=== PATIENT | female | born 1995 | race Caucasian/White ===

== ENCOUNTER 2017-03-20 13:50 | Emergency (ER) | payer BC ==
[~2017-03-20] VITALS: Ht 165.1 cm; Wt 64.0 kg
[2017-03-20 13:52] VITALS: TEMP 37; Ht 165.1 cm; Wt 64.0 kg
[2017-03-20 14:48] LABS: BASO % 0.2 %; BASO ABS # 0.02 K/uL (0-0.2); COMPLETE YES; EOS % 0.4 %; HEMATOCRIT 41.2 % (37-47); IG% 0.1 %; LYMPH % 31.4 %; LYMPH ABS # 2.55 K/uL (1.2-3.4); MEAN CELL VOLUME 88.6 fL (80-100); MEAN CORPUSCULAR HEMOGLOBIN 30.5 pg (25-34); MEAN CORPUSCULAR HGB CONC 34.5 g/dl (32-36); MEAN PLATELET VOLUME 9.1 fL (7.4-10.4); MONO % 4.9 %; PLATELET COUNT 240 K/uL (130-400); RED BLOOD COUNT 4.65 M/uL (4.2-5.4); WHITE BLOOD COUNT 8.11 K/uL (4.8-10.8)
--- NOTE | 2017-03-20 14:49 | EMERGENCY ROOM VISIT NOTE ---
History First contact with patient: 14:26 Chief Complaint: CHEST PAIN Stated Complaint: CP, RUNNING INTO NECK/ARM, NUMB FEELING IN WRIST Nursing Triage Summary: chest pain and left neck and arm pain for the past 3 hrs History of Present Illness The patient is a 21 year old female who presents to the Emergency Room with complaints of chest pain for 3-4 hours ago. She reports it started suddenly on the L side of her chest, under her clavicle. It radiates down her L arm on the 4th and 5th fingers. The pain is associated with numbness. She describes the pain as throbbing. She reports it is an 8-9/10. She denies shortness of breath. Nothing makes the pain better or worse. It has been constant over the last 3-4 hours. She went to [facility] and was advised to come here for evaluation for blood clots. She denies any periods of immobility. She denies calf swelling. She is not short of breath. She has a history of anxiety. She used to have panic attacks to the point where she would faint, but is not on regular medications for anxiety. She does exercise and was doing pushups yesterday. She is on control but is on the Nexplanon, so is not on exogenous estrogen. Review of Systems See HPI for pertinent positives & negatives. A total of 10 systems reviewed and were otherwise negative. Past Medical/Surgical History Medical Problems: (1) Anxiety (2) No chronic problems PMHx: Anxiety PSHx: None Family History Both parents are alive and well. Mom has HTN. Neither parents have cardiac disease. Social History Smoking Status: Never Smoker Alcohol Use: none Drug Use: none Marital Status: single Housing Status: lives with roommate Occupation Status: [employer] student Current/Historical Medications No Active Prescriptions or Reported Meds Allergies NKDA Physical Exam Vital Signs Date Time Temp Pulse Resp B/P (MAP) Pulse Ox O2 Delivery O2 Flow Rate FiO2 03/20/17 15:59 74 16 123/75 97 03/20/17 15:21 85 16 107/75 Room Air 03/20/17 15:20 97 Room Air 03/20/17 13:52 37.0 94 16 126/86 97 Room Air Physical Exam GENERAL: Awake, alert, well-appearing, in no acute distress HENT: Normocephalic, atraumatic. Oropharynx unremarkable. EYES: Normal conjunctiva. Sclera non-icteric. NECK: Supple. No nuchal rigidity. FROM. No JVD. RESPIRATORY: Clear to auscultation. CARDIAC: Regular rate, normal rhythm. Extremities warm and well perfused. Pulses equal. ABDOMEN: Soft, non-distended. No tenderness to palpation. No rebound or guarding. No masses. RECTAL: Deferred. MUSCULOSKELETAL: Chest examination reveals mild tenderness. The back is symmetrical on inspection without obvious abnormality. There is no CVA tenderness to palpation. No joint edema. LOWER EXTREMITIES: Calves are equal size bilaterally and non-tender. No edema. No discoloration. NEURO: Normal sensorium. No sensory or motor deficits noted. SKIN: No rash or jaundice noted. Medical Decision & Procedures Laboratory Results 03/20/17 14:33 Red Blood Count 4.65, Mean Corpuscular Volume 88.6, Mean Corpuscular Hemoglobin 30.5, Mean Corpuscular Hemoglobin Concent 34.5, Mean Platelet Volume 9.1, Neutrophils (%) (Auto) 63.0, Lymphocytes (%) (Auto) 31.4, Monocytes (%) (Auto) 4.9, Eosinophils (%) (Auto) 0.4, Basophils (%) (Auto) 0.2, Neutrophils # (Auto) 5.10, Lymphocytes # (Auto) 2.55, Monocytes # (Auto) 0.40, Eosinophils # (Auto) 0.03, Basophils # (Auto) 0.02 03/20/17 14:33 Test 03/20/17 14:33 03/20/17 14:39 03/20/17 14:56 White Blood Count 8.11 K/uL (4.8-10.8) Red Blood Count 4.65 M/uL (4.2-5.4) Hemoglobin 14.2 g/dL (12.0-16.0) Hematocrit 41.2 % (37-47) Mean Corpuscular Volume 88.6 fL (80-100) Mean Corpuscular Hemoglobin 30.5 pg (25-34) Mean Corpuscular Hemoglobin Concent 34.5 g/dl (32-36) Platelet Count 240 K/uL (130-400) Mean Platelet Volume 9.1 fL (7.4-10.4) Neutrophils (%) (Auto) 63.0 % Lymphocytes (%) (Auto) 31.4 % Monocytes (%) (Auto) 4.9 % Eosinophils (%) (Auto) 0.4 % Basophils (%) (Auto) 0.2 % Neutrophils # (Auto) 5.10 K/uL (1.4-6.5) Lymphocytes # (Auto) 2.55 K/uL (1.2-3.4) Monocytes # (Auto) 0.40 K/uL (0.11-0.59) Eosinophils # (Auto) 0.03 K/uL (0-0.5) Basophils # (Auto) 0.02 K/uL (0-0.2) RDW Standard Deviation 40.1 fL (36.4-46.3) RDW Coefficient of Variation 12.5 % (11.5-14.5) Immature Granulocyte % (Auto) 0.1 % Immature Granulocyte # (Auto) 0.01 K/uL (0.00-0.02) Urine Color DK YELLOW Urine Appearance CLOUDY (CLEAR) Urine pH 7.0 (4.5-7.5) Urine Specific [place] 1.032 (1.000-1.030) Urine Protein 1+ (NEG) Urine Glucose (UA) NEG (NEG) Urine Ketones TRACE (NEG) Urine Occult Blood NEG (NEG) Urine Nitrite NEG (NEG) Urine Bilirubin NEG (NEG) Urine Urobilinogen NEG (NEG) Urine Leukocyte Esterase SMALL (NEG) Urine WBC (Auto) 5-10 /hpf (0-5) Urine RBC (Auto) 5-10 /hpf (0-4) Urine Hyaline Casts (Auto) 10-30 /lpf (0-5) Urine Epithelial Cells (Auto) >30 /lpf (0-5) Urine Bacteria (Auto) 2+ (NEG) Urine Renal Epithelial Cells /lpf (0-5) Anion Gap 7.0 mmol/L (3-11) Est Creatinine Clear Calc Drug Dose 85.7 ml/min Estimated GFR () 100.6 Estimated GFR (Non- 86.8 BUN/Creatinine Ratio 12.5 (10-20) Calcium Level 9.3 mg/dl (8.5-10.1) Total Bilirubin 1.6 mg/dl (0.2-1) Aspartate Amino Transf (AST/SGOT) 17 U/L (15-37) Alanine Aminotransferase (ALT/SGPT) 12 U/L (12-78) Alkaline Phosphatase 53 U/L (45-117) Total Protein 8.3 gm/dl (6.4-8.2) Albumin 4.5 gm/dl (3.4-5.0) Globulin 3.8 gm/dl (2.5-4.0) Albumin/Globulin Ratio 1.2 (0.9-2) Bedside D-Dimer 101 ng/mlFEU (0-450) Bedside Troponin I < 0.030 ng/ml (0-0.045) Medications Administered Medications (Trade) Dose Ordered Sig/Alok Route Start Time Stop Time Status Last Admin Dose Admin Lorazepam (Ativan Tab) 0.5 mg NOW STAT PO 03/20/17 15:41 03/20/17 15:42 DC 03/20/17 15:48 0.5 MG ECG Indication: chest pain Rate (beats per minute): 86 Rhythm: normal sinus Findings: no ectopy Comparison ECG Date: no prior available ED Course 2:30 PM: I saw the patient in room C7. A complete history and physical examination was performed. 3:30 PM: Ordered Ativan Tab 0.5 mg PO. 3:35: On reevaluation, the patient is resting. I discussed the results and findings with the patient. She verbalized agreement of the treatment plan. She was discharged home. Medical Decision This is a 21 yo F who presents with chest pain x 4 hours. DDx includes - MA, ACS , pericarditis, anxiety, musculoskeletal, cholecystitis, GERD. She had an IV placed and labs drawn. Her vitals and labwork were unremarkable. She had a normal D-dimer and troponin. CXR was negative for disease. She was very anxious during her time in the ED and felt better with PO dose of Ativan. She was felt to be stable for discharge home with outpatient follow up. She was discharged home in good condition. Impression Primary Impression: Chest wall pain Departure Information Dispostion Home / Self-Care Condition GOOD Prescriptions No Active Prescriptions or Reported Meds Referrals [facility] (PCP) Patient Instructions My [facility]
[2017-03-20 14:52] LABS: URINE APPEARANCE CLOUDY (CLEAR); URINE BILIRUBIN NEG (NEG); URINE COLOR DK YELLOW; URINE EPITHELIAL CELL AUTO >30 /lpf (0-5); URINE NITRITE NEG (NEG); URINE SPECIFIC GRAVITY 1.032 (1.000-1.030); UROBILINOGEN NEG (NEG); ZZUR CULT IF INDIC CLEAN CATCH YES
[2017-03-20 14:54] LABS: MANUAL MICROSCOPIC REQUIRED? NO; REVIEW REQ? YES
[2017-03-20 15:09] LABS: BUN/CREATININE RATIO 12.5 (10-20); CALCIUM 9.3 mg/dl (8.5-10.1); CREATININE 0.95 mg/dl (0.60-1.20); POTASSIUM 3.7 mmol/L (3.5-5.1)
[2017-03-20 15:12] LABS: ALB/GLOB RATIO 1.2 (0.9-2)
[2017-03-20 15:13] LABS: POINT OF CARE TROPONIN I < 0.030 ng/ml (0-0.045)
[2017-03-20 15:20] VITALS: O2SAT 97
[2017-03-20] MEDS ORDERED: LORAZEPAM 0.5 MG TAB PO STA (15:41)
--- NOTE | 2017-03-20 15:46 | DIAGNOSTIC IMAGING REPORT ---
CHEST ONE VIEW PORTABLE HISTORY: 21 years-old Female left sided cp acute left-sided atypical chest pain COMPARISON: None available TECHNIQUE: Portable upright AP view of the chest FINDINGS: Cardiomediastinal and hilar silhouettes are within normal limits. No pneumothorax, pleural effusion, focal airspace consolidation or overt pulmonary edema. The bones of the chest are grossly intact. IMPRESSION: No acute cardiopulmonary process. The above report was generated using voice recognition software. It may contain grammatical, syntax or spelling errors. Electronically signed by: Jesús Nolan M.D. 03/20/2017 3:45 PM Dictated Date/Time: 03/20/2017 3:44 PM
[2017-03-20 15:59] VITALS: BP 123/75; PULSE 74; O2SAT 97
--- NOTE | 2017-03-20 16:02 | EMERGENCY ROOM VISIT NOTE ---
History Report prepared by Joselin: Stevie Lawrence Under the Supervision of: Amparo VergaraO. First contact with patient: 14:26 Chief Complaint: CHEST PAIN Stated Complaint: CP, RUNNING INTO NECK/ARM, NUMB FEELING IN WRIST Nursing Triage Summary: chest pain and left neck and arm pain for the past 3 hrs History of Present Illness The patient is a 21 year old female who presents to the Emergency Room with complaints of persistent left-sided chest pain that started around 3 hours ago. She says that the pain has been radiating down her left arm and into her 4th and 5th fingers, and she has been feeling some numbness and tingling around her painful areas as well. The patient currently rates her pain as an 8 to 9 out of 10 in severity. She adds that she went to [facility] prior to arrival and was told to come here to rule-out blood clots. The patient denies any calf swelling. She notes that she has a history of anxiety, and would faint sometimes. She is on Nexplanon. Source of History: patient Onset: 3 hours ago Position: chest (left) Symptom Intensity: 8 to 9 out of 10 Timing: other (persistent) Associated Symptoms: + numbness (and tingling left chest and left arm) Note: Associated symptoms: Denies calf swelling. Review of Systems See HPI for pertinent positives & negatives. A total of 10 systems reviewed and were otherwise negative. Past Medical & Surgical Medical Problems: (1) Anxiety (2) No chronic problems Family History No pertinent family history Social History Smoking Status: Never Smoker Alcohol Use: none Drug Use: none Marital Status: single Housing Status: lives with roommate Occupation Status: [employer] student Current/Historical Medications No Active Prescriptions or Reported Meds Allergies Coded Allergies: No Known Allergies (Unverified , 03/20/17) Physical Exam Vital Signs Date Time Temp Pulse Resp B/P (MAP) Pulse Ox O2 Delivery O2 Flow Rate FiO2 03/20/17 15:59 74 16 123/75 97 03/20/17 15:21 85 16 107/75 Room Air 03/20/17 15:20 97 Room Air 03/20/17 13:52 37.0 94 16 126/86 97 Room Air Physical Exam CONSTITUTIONAL/VITAL SIGNS: Reviewed / noted above. GENERAL: Non-toxic in appearance. INTEGUMENTARY: Warm, dry, and [place]. HEAD: Normocephalic. EYES: without scleral icterus or trauma. ENT/OROPHARYNX: clear and moist. LYMPHADENOPATHY/NECK: Is supple without lymphadenopathy or meningismus. RESPIRATORY: Lungs clear and equal. CARDIOVASCULAR: Regular rate and rhythm. GI/ABDOMEN: Soft and nontender. No organomegaly or pulsatile mass. No rebound or guarding. Normal bowel sounds. EXTREMITIES: Warm and well perfused. BACK: No CVA tenderness. NEUROLOGICAL: Intact without focal deficits. PSYCHIATRIC: normal affect. MUSCULOSKELETAL: Normally developed with good muscle tone. Medical Decision & Procedures ER Provider Diagnostic Interpretation: X ray results and stated below per my interpretation and radiology interpretation. CHEST ONE VIEW PORTABLE HISTORY: 21 years-old Female left sided cp acute left-sided atypical chest pain COMPARISON: None available TECHNIQUE: Portable upright AP view of the chest FINDINGS: Cardiomediastinal and hilar silhouettes are within normal limits. No pneumothorax, pleural effusion, focal airspace consolidation or overt pulmonary edema. The bones of the chest are grossly intact. IMPRESSION: No acute cardiopulmonary process. The above report was generated using voice recognition software. It may contain grammatical, syntax or spelling errors. Electronically signed by: Jesús Nolan M.D. 03/20/2017 3:45 PM Dictated Date/Time: 03/20/2017 3:44 PM Laboratory Results 03/20/17 14:33 Red Blood Count 4.65, Mean Corpuscular Volume 88.6, Mean Corpuscular Hemoglobin 30.5, Mean Corpuscular Hemoglobin Concent 34.5, Mean Platelet Volume 9.1, Neutrophils (%) (Auto) 63.0, Lymphocytes (%) (Auto) 31.4, Monocytes (%) (Auto) 4.9, Eosinophils (%) (Auto) 0.4, Basophils (%) (Auto) 0.2, Neutrophils # (Auto) 5.10, Lymphocytes # (Auto) 2.55, Monocytes # (Auto) 0.40, Eosinophils # (Auto) 0.03, Basophils # (Auto) 0.02 03/20/17 14:33 Test 03/20/17 14:33 03/20/17 14:39 03/20/17 14:56 White Blood Count 8.11 K/uL (4.8-10.8) Red Blood Count 4.65 M/uL (4.2-5.4) Hemoglobin 14.2 g/dL (12.0-16.0) Hematocrit 41.2 % (37-47) Mean Corpuscular Volume 88.6 fL (80-100) Mean Corpuscular Hemoglobin 30.5 pg (25-34) Mean Corpuscular Hemoglobin Concent 34.5 g/dl (32-36) Platelet Count 240 K/uL (130-400) Mean Platelet Volume 9.1 fL (7.4-10.4) Neutrophils (%) (Auto) 63.0 % Lymphocytes (%) (Auto) 31.4 % Monocytes (%) (Auto) 4.9 % Eosinophils (%) (Auto) 0.4 % Basophils (%) (Auto) 0.2 % Neutrophils # (Auto) 5.10 K/uL (1.4-6.5) Lymphocytes # (Auto) 2.55 K/uL (1.2-3.4) Monocytes # (Auto) 0.40 K/uL (0.11-0.59) Eosinophils # (Auto) 0.03 K/uL (0-0.5) Basophils # (Auto) 0.02 K/uL (0-0.2) RDW Standard Deviation 40.1 fL (36.4-46.3) RDW Coefficient of Variation 12.5 % (11.5-14.5) Immature Granulocyte % (Auto) 0.1 % Immature Granulocyte # (Auto) 0.01 K/uL (0.00-0.02) Urine Color DK YELLOW Urine Appearance CLOUDY (CLEAR) Urine pH 7.0 (4.5-7.5) Urine Specific [place] 1.032 (1.000-1.030) Urine Protein 1+ (NEG) Urine Glucose (UA) NEG (NEG) Urine Ketones TRACE (NEG) Urine Occult Blood NEG (NEG) Urine Nitrite NEG (NEG) Urine Bilirubin NEG (NEG) Urine Urobilinogen NEG (NEG) Urine Leukocyte Esterase SMALL (NEG) Urine WBC (Auto) 5-10 /hpf (0-5) Urine RBC (Auto) 5-10 /hpf (0-4) Urine Hyaline Casts (Auto) 10-30 /lpf (0-5) Urine Epithelial Cells (Auto) >30 /lpf (0-5) Urine Bacteria (Auto) 2+ (NEG) Urine Renal Epithelial Cells /lpf (0-5) Anion Gap 7.0 mmol/L (3-11) Est Creatinine Clear Calc Drug Dose 85.7 ml/min Estimated GFR () 100.6 Estimated GFR (Non- 86.8 BUN/Creatinine Ratio 12.5 (10-20) Calcium Level 9.3 mg/dl (8.5-10.1) Total Bilirubin 1.6 mg/dl (0.2-1) Aspartate Amino Transf (AST/SGOT) 17 U/L (15-37) Alanine Aminotransferase (ALT/SGPT) 12 U/L (12-78) Alkaline Phosphatase 53 U/L (45-117) Total Protein 8.3 gm/dl (6.4-8.2) Albumin 4.5 gm/dl (3.4-5.0) Globulin 3.8 gm/dl (2.5-4.0) Albumin/Globulin Ratio 1.2 (0.9-2) Bedside D-Dimer 101 ng/mlFEU (0-450) Bedside Troponin I < 0.030 ng/ml (0-0.045) Laboratory results as stated above per my review. Medications Administered Medications (Trade) Dose Ordered Sig/Alok Route Start Time Stop Time Status Last Admin Dose Admin Lorazepam (Ativan Tab) 0.5 mg NOW STAT PO 03/20/17 15:41 03/20/17 15:42 DC 03/20/17 15:48 0.5 MG ECG Indication: chest pain Rate (beats per minute): 86 Rhythm: sinus rhythm Findings: no ectopy, other (no acute injury) ED Course 1430: The patient was evaluated in room C7 with the resident, Dr. Jackson. A complete history and physical examination was performed. 1458: Previous medical records were reviewed. The patient was evaluated in room C7. A complete history and physical examination was performed. 1541: Ordered Ativan Tab 0.5 mg PO. 1555: On reevaluation, the patient is resting. I discussed the results and findings with the patient. She verbalized agreement of the treatment plan. She was discharged home. Medical Decision Differentials considered include acute myocardial infarction, acute coronary syndrome, myocarditis, pericarditis, pericardial effusions /tamponade, esophageal perforation, thoracic aortic dissection, pulmonary embolism, pneumonia, pneumothorax, pancreatitis, shingles, acute cholecystitis, and perforated abdominal viscus. . This is a 21-year-old female who presents to the ED with a chief complaint of left-sided upper and lower chest pain. The patient states that she also had some discomfort in her left arm at times. The patient states that her symptoms started 4 hours ago. Her physical exam was unremarkable. Her vital signs are normal. She denies any recent illness or fevers or cough. A twelve-lead EKG shows a sinus rhythm at a rate of 86. D-dimer is negative, troponin is negative , blood work was otherwise unremarkable. Chest x-ray did not show acute disease. The patient was told the results. She is felt to be stable for discharge and outpatient follow-up. Seen with the resident. Medication Reconcilliation Current Medication List: was personally reviewed by me Blood Pressure Screening Patient's blood pressure: Normal blood pressure Impression Primary Impression: Precordial chest pain Scribe Attestation The scribe's documentation has been prepared under my direction and personally reviewed by me in its entirety. I confirm that the note above accurately reflects all work, treatment, procedures, and medical decision making performed by me. Departure Information Dispostion Home / Self-Care Prescriptions No Active Prescriptions or Reported Meds Referrals [facility] (PCP) Patient Instructions My [facility] Additional Instructions Follow up with your PCP to discuss anxiety. If the chest pain persists, or you develop severe shortness of breath, fevers, chills, or any other new concerning symptoms, please return to the ED. Follow up with Nieves Jackson MD, at the [facility], at [address], [address]. Call [phone] to arrange an appt.
[2017-03-31] MEDS ORDERED: AZITTAB PO (21:18)
== END 2017-03-20 16:00 | disposition home or self-care (01) ==
LOC: C.EDB 13:52 → C.EDC 16:00
DX: R07.89 Other chest pain (principal); F41.9 Anxiety disorder, unspecified